=== PATIENT | male | born 1965 | race Caucasian/White ===

== ENCOUNTER 2021-04-01 15:40 | Observation (INO) | payer OTHER ==
[~2021-04-01] VITALS: Ht 180.3 cm; Wt 115.0 kg
--- NOTE | 2021-04-01 15:45 | NUR ---
PT AMB TO ROOM WITH STEADY GAIT
--- NOTE | 2021-04-01 16:00 | NUR ---
PT C/O INCREASE IN SOB OVER THE LAST FEW DAYS WITH EXERTION. EDP AT BEDSIDE. OBTAINED SWABS ORDERED, PT TOLERATED WELL.
[2021-04-01 16:23] LABS: HEMOGLOBIN 15.4 g/dl (14.0-18.0); IMMATURE GRANULOCYTES 0.3 % (0.0-5.0); MEAN CORPUSCULAR HGB 30.1 pG CALC (26.0-32.0); MEAN CORPUSCULAR HGB CONC 32.8 g/dL CAL (32.0-36.0); NEUT# 4.93 thou/uL (1.82-7.42); RED BLOOD COUNT 5.11 mill/uL (4.70-6.10); RED CELL DISTRI WIDTH 13.7 % (11.5-15.5)
[2021-04-01 16:40] LABS: ALBUMIN 3.7 g/dL (3.2-5.0); ALKALINE PHOSPHATASE 184 u/l (38-126); ANION GAP 11 (6-22 (CALC)); BILIRUBIN, TOTAL 0.8 mg/dL (0.0-1.4); BUN 12 mg/dL (9-20); BUN/CREATININE RATIO 10 (12-20 (CALC)); CARBON DIOXIDE 31 mmol/l (22-30); CHLORIDE 102 mmol/l (95-108); CREATININE 1.2 mg/dL (0.7-1.3); GFR > 60 ML/MIN (>=60 (CALC)); GFR FOR AFR.AMER. > 60 ML/MIN (>=60 (CALC)); LIPASE 172 u/l (23-300); MAGNESIUM 2.1 mg/dL (1.6-2.3); POTASSIUM 4.9 mmol/l (3.5-5.1); SGOT/AST 143 u/l (17-59); SODIUM 139 mmol/l (137-146); TOTAL PROTEIN 6.7 g/dL (6.3-8.2)
--- NOTE | 2021-04-01 17:14 | NUR ---
PT RESTING IN BED , STATES HE FEELS SOB, O2 SAT 93%, O2@2LPM VIA NC APPLIED. IV FLUIDS AND ABT INFUSING . AT BEDSIDE.
--- NOTE | 2021-04-01 17:40 | NUR ---
UP FOR AMBULATION TRIAL IN HALLWAY WITHOUT OXYGEN. AFTER BRIEF AMBULATION IN THE HALLWAY PT HR TO 124 O2 SAT DROPPED TO 89% ON RA WITH AMBULATION. EDP AT SIDE AND AWARE. PT ADVISED OF THE NEED FOR ADMISSION AND AGREEABLE. AT BEDSIDE.
--- NOTE | 2021-04-01 17:49 | NUR ---
IV FLUIDS CONTINUE
--- NOTE | 2021-04-01 18:30 | NUR ---
PT TRANSPORTED TO [facility] VIA ON O2@3LPM VIA NC. IN ATTENDANCE. ALL BELONGINGS WITH
--- NOTE | 2021-04-01 18:40 | NUR ---
PT RECEIVED FROM ED TO ROOM 269. ARRIVES VIA WC ACCOMPANIED BY ED RN. PT AMBULATORY TO BED. GAIT UNSTEADY. PT DENIES PAIN AT THIS TIME. ORIENTED TO UNIT, ROOM, CALL FINK, LIGHTS, TV. ICE WATER PROVIDED. CALL FINK WITHIN REACH. AGREES TO CALL PRN.
[2021-04-01 19:30] VITALS: BP 150/67
--- NOTE | 2021-04-01 20:13 | NUR ---
PHYSICAL ASSESMENT COMPLETE. PT CURRENTLY DENIES PAIN OR DISCOMFORT. SCHEDULED MEDICATIONS AND PRN MEDICATION ADMINISTERED, SEE E-MAR. PT DENIES ANY NEEDS AT THIS TIME. PLAN OF CARE REVIEWED, PT DENIES QUESTIONS, VERBALIZES UNDERSTANDING. ITEMS WITHIN REACH, BED LOCKED IN LOW POSITION W/ BEDRAILS UP X2. CALL FINK WITHIN REACH, AGREES TO CALL PRN.
[2021-04-01 23:55] VITALS: BP 113/61
--- NOTE | 2021-04-02 04:09 | NUR ---
PT RESTING IN BED, NO SIGNS OF DISTRESS NOTED, RESP EVEN AND UNLABORED. PT VOICES NO NEEDS OR COMPLAINTS AT THIS TIME. CALL LIGHT IN REACH, CONTINUE TO MONITOR.
[2021-04-02 04:40] VITALS: BP 132/65
[2021-04-02 04:58] LABS: HEMATOCRIT 43.2 % (39.0-50.0); MEAN CELL VOLUME 92.5 fL CALC (80.0-100.0); MEAN CORPUSCULAR HGB CONC 32.4 g/dL CAL (32.0-36.0); RED BLOOD COUNT 4.67 mill/uL (4.70-6.10)
[2021-04-02 05:23] LABS: ANION GAP 9 (6-22 (CALC)); BUN 12 mg/dL (9-20); BUN/CREATININE RATIO 13 (12-20 (CALC)); CARBON DIOXIDE 27 mmol/l (22-30); CHLORIDE 105 mmol/l (95-108); CREATININE 0.9 mg/dL (0.7-1.3); GFR > 60 ML/MIN (>=60 (CALC)); GFR FOR AFR.AMER. > 60 ML/MIN (>=60 (CALC)); MAGNESIUM 1.9 mg/dL (1.6-2.3); POTASSIUM 4.6 mmol/l (3.5-5.1); SODIUM 136 mmol/l (137-146)
[2021-04-02 07:10] VITALS: BP 130/65
--- NOTE | 2021-04-02 07:10 | NUR ---
PATIENT RESTING IN BED AT THIS TIME. PATIENT STATES "I FEEF MUCH BETTER THAN WHEN I CAME IN". [employer] STAND[employer] COACH DONE SEE INTERVENTIONS. LUNG BROWN ARE CLEAR AT THIS TIME. NON PRODUCTIVE COUGH NOTED TELE MONITOR IN PLACE BEING MONITORED BY ED. SIDEREAILS ARE UP CALL LIGHT WITHIN REACH. PATIENT ALERT AND ORIENTED AND DENEIS ANY PAIN AT THIS TIME. WILL CONTINUE TO MONITOR.
--- NOTE | 2021-04-02 10:00 | NUR ---
PATIENT SITTING UP AT BEDSIDE OXYGEN OFF FOR 30 MINUTES. SPO2 IS 93% ON ROOMAIR. SIX MIN. WALK TEST PREFORMED AT THIS TIME. PATIENT WALKED IN HALLWAY AND SPO2 IS 92% AT THIS TIME WITH O2 OFF. O2 REPLACED AND SPO2 IS 94%. FINAL RESTING SPO2 IS 92% AND PULSE RATE OF 89. DR. TORREZ NOTIFIED OF RESULTS.
[2021-04-02] MEDS ORDERED: OMNICEF300 M1 PO (10:43)
[2021-04-02] MEDS ORDERED: ZITHROMAX250 MG PO (10:43)
[2021-04-02] MEDS ORDERED: TESSALON PERLE100 MG PO (10:44)
--- NOTE | 2021-04-02 11:34 | NUR ---
PATIENT D/C AT THIS TIME. PATIENT VERBAIZES UNDERSTANDING OF D/C INSTRUCTIONS AT THIS TIME. IV REMOVED AND ED CALLED AND TELE MONITOR TAKE OFF.
[2021-04-02 12:00] VITALS: BP 137/80
--- NOTE | 2021-04-02 13:12 | NUR ---
Discharge instructions given. Patient verbalizes understanding of same. Discharged in stable condition via Wheelchair to Home with *Other. All belongings sent with pt.
== END 2021-04-02 13:10 | disposition home or self-care (01) | DRG 193 ==
LOC: ED 15:40 → ED-I 17:25 → ED 17:58 → MS2 17:59
PROVIDERS: Emergency Medicine; ADMIT Hospitalist; ATTEND Hospitalist
DX: J18.9 Pneumonia, unspecified organism (principal); J96.01 Acute respiratory failure with hypoxia; Z20.822 Contact with and (suspected) exposure to COVID-19
CPT/HCPCS: G0378; J1650